=== PATIENT | male | born 1950 | race Caucasian/White ===

== ENCOUNTER 2018-01-27 11:36 | Emergency (ER) | payer BC, MEDICARE ==
--- NOTE | 2018-01-27 13:04 | RAD ---
HISTORY: pain COMPARISONS: None VIEWS: 5 , Frontal, lateral, coned-down lateral sacral, and bilateral oblique views of the lumbar spine. FINDINGS: ALIGNMENT: There is grade 1 anterolisthesis of L4 and L5. VERTEBRAL BODIES: There is mild anterolateral marginal osteophyte formation. JOINTS: There is extensive facet osteoarthritis most pronounced along the lower lumbar spine. INTERVERTEBRAL DISCS: There is diffuse loss of intervertebral disc height. SOFT TISSUE: Unremarkable. OTHER: The pelvis is unremarkable. The lung bases are clear. IMPRESSION: 1. FACET OSTEOARTHRITIS AND DEGENERATIVE DISC DISEASE. 2. GRADE 1 ANTEROLISTHESIS OF L4 AND L5.
[2018-01-27 13:37] VITALS: BP 124/83
--- NOTE | 2018-01-27 16:12 | ED ---
Back Pain - HPI Summary HPI Summary: Patient is a 67y.o who presents emergency department for low back pain 2-3 weeks. Patient does not recall any specific falls or injuries. He states he was seen at an urgent care and prescribed muscle relaxant and ibuprofen and but pain is getting worse. States pain is located to his low mid back and left upper buttock. He denies radicular pain to legs, numbness, tingling or weakness. He denies bowel or bladder incontinence or retention. Denies fever, abdominal pain, vomiting, diarrhea, constipation, recent illness. Medical history of diabetes. Patient states he is currently visiting the area from [place] minimal returning home next week. Symptoms are mild in severity. Pain is exacerbated by movement. Rest makes symptoms better. - History of Current Complaint Chief Complaint: EDBackInjuryPain Stated Complaint: LOWER BACK PAIN Time Seen by Provider: 01/27/18 12:05 Hx Obtained From: Patient Pain Intensity: 0 Pain Scale Used: 0-10 Numeric - Allergies/Home Medications Allergies/Adverse Reactions: Allergies Allergy/AdvReac Type Severity Reaction Status Date / Time No Known Allergies Allergy Verified 01/27/18 11:40 Home Medications: Home Medications Glimepiride 4 mg PO BID 01/27/18 [History Confirmed 01/27/18] Hydrochlorothiazide TAB* [Hydrodiuril TAB*] 25 mg PO DAILY 01/27/18 [History Confirmed 01/27/18] Lisinopril 5 mg PO DAILY 01/27/18 [History Confirmed 01/27/18] Simvastatin 20 mg PO DAILY 01/27/18 [History Confirmed 01/27/18] Sitagliptin Phos/Metformin HCl [Janumet 50-1000 mg] 1 tab PO BID 01/27/18 [ History Confirmed 01/27/18] PMH/Surg Hx/FS Hx/Imm Hx Previously Healthy: Yes Infectious Disease History: No Infectious Disease History: Denies: Traveled Outside the [place] in Last 30 Days - Social History Occupation: Retired Lives: With Family Alcohol Use: Occasionally Substance Use Type: Reports: None Smoking Status (MU): Never Smoked Tobacco Review of Systems Constitutional: Negative Negative: Fever, Chills Eyes: Negative ENT: Negative Cardiovascular: Negative Respiratory: Negative Gastrointestinal: Negative Genitourinary: Negative Positive: Other - Low back pain. Neurological: Negative Negative: Weakness, Paresthesia, Numbness All Other Systems Reviewed And Are Negative: Yes Physical Exam Triage Information Reviewed: Yes Vital Signs On Initial Exam: Initial Vitals Temp Pulse Resp BP Pulse Ox 98.7 F 88 12 140/78 97 01/27/18 11:37 01/27/18 11:37 01/27/18 11:37 01/27/18 11:37 01/27/18 11:37 Vital Signs Reviewed: Yes Appearance: Positive: Well-Appearing - Pt. lying in bed in NAD. Skin: Positive: Warm, Dry Head/Face: Positive: Normal Head/Face Inspection Eyes: Positive: Normal Neck: Positive: Supple Musculoskeletal: Positive: Other - 5 out of 5 strength in bilateral lower extremities flexion and dorsiflexion. Negative straight leg test bilaterally. No neurosensory deficits to lower extremities. Mild midline tenderness the lumbar spine and to the left SI joint. Neurological: Positive: Normal, CN Intact II-III Psychiatric: Positive: Affect/Mood Appropriate Diagnostics - Vital Signs Vital Signs Temp Pulse Resp BP Pulse Ox 01/27/18 13:31 97.9 F 80 17 124/83 96 01/27/18 11:37 98.7 F 88 12 140/78 97 - Laboratory Lab Statement: Any lab studies that have been ordered have been reviewed, and results considered in the medical decision making process. Back Pain Course/Dx - Course Course Of Treatment: Patient presenting to the emergency department for worsening low back pain. He is afebrile. He has no neurological deficits on exam or evidence of cauda equina syndrome. Given ongoing symptoms we'll obtain x-ray to rule out mass, pressure fracture. Lumbar xray shows a facet osteoarthritis and DDD, grade 1 anterolisthesis of L4 and L5. Was discussed with patient. X-rays disc was given patient since he is from out of time. Will prescribe a short course of Lortab. REHAB TECH was queried and no red flag identified. Patient to continue Motrin 600 mg 3 times a day times one week. To warm compresses to low back. Avoid heavy lifting. Advised patient that physical therapy may benefit him. He is to call his doctor when he returns home to schedule close follow-up appointment. Return to the ER if symptoms change or worsen. Patient understands and agrees with plan. - Diagnoses Differential Diagnosis/HQI/PQRI: Positive: Arthritis, Cauda Equina Syndrome, Epidural Abscess, Fracture, Herniated Disc, Neoplasm, Septic Arthritis, Strain, Sprain Provider Diagnoses: DDD (degenerative disc disease), Osteoarthritis, Anterolisthesis Discharge - Sign-Out/Discharge Documenting (check all that apply): Discharge/Admit/Transfer - Discharge Plan Condition: Good Disposition: HOME Prescriptions: Hydrocodone/Acetaminophen [Hydrocodone-Acetamin 5-325 mg] 1 each PO Q6H #12 tablet MDD 4tablets Patient Education Materials: Osteoarthritis (ED), Degenerative Disc Disease (ED ) Referrals: No Primary Care Phys,NOPCP [Primary Care Provider] - Additional Instructions: Call your PCP to schedule a close follow up appointment when you return home You may benefit from physical therapy Take hydrocodone as directed Continue ibuprofen 600mg 3x a day x 1 week Apply warm compresses to back Avoid heavy lifting Return to ER for leg numbness, tingling, weakness, loss of bowel or bladder function - Billing Disposition and Condition Condition: GOOD Disposition: Home
== END 2018-01-27 13:31 | disposition home or self-care (01) ==
LOC: ED 11:36
DX: M51.36 Other intervertebral disc degeneration, lumbar region (principal); M47.816 Spondylosis without myelopathy or radiculopathy, lumbar region; M43.16 Spondylolisthesis, lumbar region; E11.9 Type 2 diabetes mellitus without complications; Z79.84 Long term (current) use of oral hypoglycemic drugs
CPT/HCPCS: 72110; 99282